=== PATIENT | female | born 1975 | race Hispanic/Latino ===

== ENCOUNTER 2023-02-20 06:18 | Emergency (ER) | payer OTHER, MEDICARE ==
[~2023-02-20] VITALS: Ht 157.5 cm; Wt 67.6 kg
[2023-02-20] MEDS ORDERED: LORAZEPAM 1 MG TABLET ONE (06:44)
[2023-02-20] MEDS ORDERED: LISINOPRIL 20 MG TABLET PO ONE (07:00)
[2023-02-20] MEDS ORDERED: LORAZEPAM 2 MG TABLET PO ONE (07:00)
[2023-02-20 07:48] VITALS: BP 120/74; PULSE 78; RESP 18; O2SAT 99
== END 2023-02-20 08:00 | disposition home or self-care (01) ==
LOC: EDH 06:18
DX: F41.1 Generalized anxiety disorder (principal); F41.0 Panic disorder [episodic paroxysmal anxiety]; G47.00 Insomnia, unspecified; Z91.148 Patient's other noncompliance with medication regimen for other reason; F31.9 Bipolar disorder, unspecified; Z90.49 Acquired absence of other specified parts of digestive tract

== ENCOUNTER 2024-03-02 19:59 | Emergency (ER) | payer OTHER, MEDICARE ==
[~2024-03-02] VITALS: Ht 157.5 cm; Wt 63.5 kg
[2024-03-02 20:24] LABS: BASOPHILS # (AUTO) 0.02 K/uL (0.00-0.20); BASOPHILS % (AUTO) 0.3 % (0.0-5.0); EOSINOPHILS % (AUTO) 1.3 % (0.0-8.0); HEMATOCRIT 44.9 % (36-48); IMMATURE GRANULOCYTE ABSOLUTE 0.02 K/uL (0-1); LYMPHOCYTES # (AUTO) 1.9 K/uL (1.0-4.8); LYMPHOCYTES % (AUTO) 24.4 % (21.0-51.0); MEAN CORPUSCULAR HEMOGLOBIN 31.3 pg (27.0-33.0); MEAN CORPUSCULAR HGB CONC 33.4 g/dL (32.0-36.0); MEAN CORPUSCULAR VOLUME 93.5 fL (79-99); MONOCYTES # (AUTO) 0.3 K/uL (0.1-1.0); MONOCYTES % (AUTO) 4.1 % (3.0-13.0); NEUTROPHILS # (AUTO) 5.3 K/uL (1.8-7.7); NEUTROPHILS % (AUTO) 69.6 % (40.0-77.0); PLATELET COUNT (AUTO) 418 K/uL (130-400); RED CELL DISTRIBUTION WIDTH 14.4 % (11.0-15.5); WHITE BLOOD COUNT (AUTO) 7.6 K/uL (4.8-10.8)
[2024-03-02 20:35] VITALS: BP 128/71; PULSE 54; RESP 20; TEMP 98; O2SAT 96
[2024-03-02 20:37] LABS: ALBUMIN 4.3 g/dL (3.5-5.0); BILIRUBIN,TOTAL 0.1 mg/dL (0.2-1.0); CREATININE 0.8 mg/dL (0.5-1.0); POTASSIUM 3.9 mmol/L (3.5-5.1); TOTAL PROTEIN, SERUM 8.4 g/dL (6.0-8.3)
[2024-03-02] MEDS: 0.9%NACL 1000ML 1,002 ML IV ONE (20:39)
[2024-03-02] MEDS: queTIAPine fuMARate 25 MG TAB PO ONE (20:39)
[2024-03-02] MEDS: LORazepam 1 MG TABLET PO ONE (20:39)
--- NOTE | 2024-03-02 20:41 | ERN ---
General Chief Complaint: Abdominal Pain Stated Complaint: ABDOMINAL PAIN, DIARRHEA Time Seen by MD: 20:07 History of Present Illness Initial Comments Mrs Hernandez is a 48-year-old female significant past medical history cirrhosis, morbid obesity who presents today with chief complaint of anxiety. Patient reports that she has been having panic attacks today over the thoughts of having cirrhosis. Patient was told that she has cirrhosis and states that she can not take medicines because somebody told her that this would make her cirrhosis that is worse. Patient reports that she is having shortness of breath while asleep and wakes up in a panic Allergies: Coded Allergies: No Known Allergies (Unverified Allergy, Unknown, 02/20/23) Past Medical History Past Medical History: Anxiety, Bipolar Past Surgical History: Cholecystectomy ROS Dictation Constitutional: Negative for fever,chills, and weight loss Eyes: Negative for injury, pain,redness, and discharge ENT: Negative for injury,pain or swelling Cardiovascular: Negative for chest pain, palpitations, and edema Respiratory: Negative for shortness of breath, cough, and wheezing, Abdomen/GI: Negative for abdominal pain, nausea, vomiting, diarrhea, and constipation Back: Negative for injury and pain : Negative for injury, bleeding and discharge MS/Extremity: Negative for injury and deformity Skin: Negative for rash, and discoloration Neuro: Negative for headache, weakness, numbness, tingling, and seizure Psych: Positive for anxiety Physical Exam Physical Exam Dictation General: awake, alert, NAD Head/Face: Normocephalic, atraumatic Eyes: PERRL, EOMI, vision at baseline ENT: oral cavity clear, TMs clear, Neck: Trachea midline, supple Cardiovascular: RRR, normal S1/S2, No MRGs, no JVD Respiratory: CTAB, no respiratory distress, No rales or wheezes Abdomen: Soft, non-tender, non-distended, normal bowel sounds Skin: Warm, dry, normal turgor, no rash MS/Extremity: Pulses equal, no cyanosis Neuro: COAx4, GCS 15, strength 5/5, CN 2-12 intact Psych: Positive for anxiety Results Laboratory and Microbiology Lab and Micro Result Laboratory Tests Test 03/02/24 20:19 White Blood Count 7.6 K/uL (4.8-10.8) Red Blood Count 4.80 MIL/uL (4.00-5.50) Hemoglobin 15.0 g/dL (12.0-16.0) Hematocrit 44.9 % (36-48) Mean Corpuscular Volume 93.5 fL (79-99) Mean Corpuscular Hemoglobin 31.3 pg (27.0-33.0) Mean Corpuscular Hemoglobin Concent 33.4 g/dL (32.0-36.0) Red Cell Distribution Width 14.4 % (11.0-15.5) Platelet Count 418 K/uL (130-400) H Mean Platelet Volume 9.8 fL (7.5-10.5) Immature Granulocyte % (Auto) 0.3 % (0-1) Neutrophils (%) (Auto) 69.6 % (40.0-77.0) Lymphocytes (%) (Auto) 24.4 % (21.0-51.0) Monocytes (%) (Auto) 4.1 % (3.0-13.0) Eosinophils (%) (Auto) 1.3 % (0.0-8.0) Basophils (%) (Auto) 0.3 % (0.0-5.0) Neutrophils # (Auto) 5.3 K/uL (1.8-7.7) Lymphocytes # (Auto) 1.9 K/uL (1.0-4.8) Monocytes # (Auto) 0.3 K/uL (0.1-1.0) Eosinophils # (Auto) 0.10 K/uL (0.00-0.70) Basophils # (Auto) 0.02 K/uL (0.00-0.20) Absolute Immature Granulocyte (auto 0.02 K/uL (0-1) Nucleated Red Blood Cells 0.0 % (0.0-0.19) Sodium Level 143 mmol/L (136-145) Potassium Level 3.9 mmol/L (3.5-5.1) Chloride Level 102 mmol/L (101-111) Carbon Dioxide Level 33 mmol/L (21-32) H Blood Urea Nitrogen 23 mg/dL (7-18) H Creatinine 0.8 mg/dL (0.5-1.0) Glomerular Filtration Rate Calc 90 mL/min (>90) Random Glucose 120 mg/dL (70-105) H Total Calcium 9.5 mg/dL (8.5-10.1) Total Bilirubin 0.1 mg/dL (0.2-1.0) L Aspartate Amino Transf (AST/SGOT) 34 U/L (10-37) Alanine Aminotransferase (ALT/SGPT) 41 U/L (12-78) Alkaline Phosphatase 132 U/L (50-136) Total Protein 8.4 g/dL (6.0-8.3) H Albumin 4.3 g/dL (3.5-5.0) Amylase Level 123 U/L (25-115) H Lipase 86 U/L (16-77) H MDM Patient has had improved anxiety. Patient feels back to baseline. Patient was not having any signs of diarrhea. ED Course Orders Procedure Category Date Status Time Cbc With Differential LAB 03/02/24 Complete 20:06 Comprehensive LAB 03/02/24 Complete Metabolic Panel 20:06 Lipase LAB 03/02/24 Complete 20:06 0.9%Nacl 1000ml (Ns PHA 03/02/24 In Process 1000ml) 20:30 Quetiapine Fumarate PHA 03/02/24 Complete 25 Mg Tab (Seroquel 20:30 Lorazepam 1 Mg PHA 03/02/24 Complete (Ativan) 20:30 Amylase LAB 03/02/24 Complete 20:41 Urinalysis Profile LAB 03/02/24 Logged 20:41 Ondansetron 4mg Inj PHA 03/02/24 Complete (Zofran 4mg Inj) 21:00 Lidocaine Hcl 2% PHA 03/02/24 Complete Viscous (Lidocaine Hcl 21:00 Mag/Alum/Simeth 30ml PHA 03/02/24 Complete (Maalox Plus 30ml) 21:00 Dicyclomine Hcl PHA 03/02/24 Complete (Bentyl 10mg/5ml 21:00 Current Medications Medications (Trade) Dose Ordered Sig/[place] Route PRN Reason Start Time Stop Time Status Last Admin Dose Admin Al Hydroxide/Mg Hydroxide (MAALox PLUS 30ML) 30 ml ONCE ONCE PO 03/02/24 21:00 03/02/24 21:01 DC 03/02/24 20:57 Dicyclomine HCl (Bentyl 10mg/5ml Syrup) 10 mg ONCE ONCE PO 03/02/24 21:00 03/02/24 21:01 DC 03/02/24 20:57 Lidocaine HCl (Lidocaine HCl 2% Viscous) 10 ml ONCE ONCE PO 03/02/24 21:00 03/02/24 21:01 DC 03/02/24 20:57 Lorazepam (AtiVAN) 1 mg ONCE ONCE PO 03/02/24 20:30 03/02/24 20:36 DC 03/02/24 20:39 Ondansetron HCl (zoFRAN 4MG INJ) 4 mg ONCE ONCE IVP 03/02/24 21:00 03/02/24 21:01 DC 03/02/24 20:57 Quetiapine Fumarate (SEROquel 25 mg TAB) 25 mg ONCE ONCE PO 03/02/24 20:30 03/02/24 20:36 DC 03/02/24 20:39 Sodium Chloride 1,002 ml @ 334 mls/hr ONCE ONCE IV 03/02/24 20:30 03/02/24 23:29 03/02/24 20:39 Vital Signs Date Time Temp Pulse Resp B/P (MAP) Pulse Ox O2 Delivery O2 Flow Rate FiO2 03/02/24 20:35 98.1 54 20 128/71 96 Room Air* 0 21 03/02/24 20:09 65 16 137/83 96 Room Air 0 DX & DISP Disposition: Discharge Departure Impression: Primary Impression: Generalized anxiety disorder with panic attacks Condition: Stable Scripts Clonazepam (Clonazepam) 1 Mg Tab.rapdis 1 TAB PO TID for 3 Days, #10 TAB 0 Refills Prov: GILLIAN BRYAN MD 03/02/24 Additional Instructions: Please follow up with your primary care physician. Please consider getting a referral to a psychiatrist. Please take your medications as prescribed. Referrals: SELF,REFERRAL (PCP) GILLIAN BRYAN MD Mar 02, 2024 20:40
[2024-03-02] MEDS: DICYCLOMINE HCL 10 MG/5 ML ML PO ONE (20:57)
[2024-03-02] MEDS: ondanSETRON 4MG INJ IVP ONE (20:57)
[2024-03-02] MEDS: MAG/ALUM/SIMETH 30 ML UDCUP PO ONE (20:57)
[2024-03-02] MEDS: LIDOCAINE HCL 2% VISCOUS 15 ML UDCUP PO ONE (20:57)
[2024-03-02] MEDS ORDERED: CLON1TAB23 PO (22:16)
== END 2024-03-02 22:59 | disposition home or self-care (01) ==
LOC: EDH 19:59
DX: F41.1 Generalized anxiety disorder (principal); F41.0 Panic disorder [episodic paroxysmal anxiety]; E66.01 Morbid (severe) obesity due to excess calories; F31.9 Bipolar disorder, unspecified; K74.60 Unspecified cirrhosis of liver; Z90.49 Acquired absence of other specified parts of digestive tract
CPT/HCPCS: 99284; 96374; 82150; 80053; 83690; 85025; 36415; J7030; J2405